=== PATIENT | male | born 1980 | race American Indian/Alaskan Native ===

== ENCOUNTER 2022-01-09 13:33 | Emergency (ER) | payer SELFPAY ==
--- NOTE | 2022-01-09 14:01 | Event Note ---
ED Screening Note ED Screening Note: 41-year-old male presents to the ED complaining of chest pain 1 day. He denies any shortness of breath at present time patient has a history of hypertension patient states pain is a 3 out of 10. No acute distress noted .No ill appearance noted. This initial assessment/diagnostic orders/clinical plan/treatment(s) is/are subject to change based on patients health status, clinical progression and re- assessment by fellow clinical providers in the ED. Further treatment and workup at subsequent clinical providers discretion. Patient/guardian urged not to elope from the ED as their condition may be serious if not clinically assessed and managed. Initial orders include:
--- NOTE | 2022-01-09 14:26 | XRay Report ---
CHEST 2 VIEWS INDICATION / CLINICAL INFORMATION: Chest Pain. COMPARISON: None available. FINDINGS: SUPPORT DEVICES: None. HEART / MEDIASTINUM: No significant abnormality. LUNGS / PLEURA: No significant pulmonary or pleural abnormality. No pneumothorax. ADDITIONAL FINDINGS: No significant additional findings. IMPRESSION: 1. No acute findings. Signer Name: Chandu Wade MD Signed: 01/09/2022 2:22 PM Workstation Name: [id number]
[2022-01-09 15:52] LABS: Hematocrit 40.8 % (35.5-45.6); Hemoglobin 13.4 gm/dl (11.8-15.2); Mean Corpuscular HGB Conc 33 % (32-34); Mean Corpuscular Volume 88 fl (84-94); Platelet Count 238 K/mm3 (140-440); Red Blood Count 4.64 M/mm3 (3.65-5.03); Red Cell Distribution Width 14.5 % (13.2-15.2)
[2022-01-09 16:34] LABS: INR 0.85 (0.87-1.13)
[2022-01-09 16:35] LABS: Partial Thromboplastin Time 28.6 Sec. (24.2-36.6)
[2022-01-09 17:25] LABS: Alanine Aminotransferase 28 units/L (7-56); BUN/Creatinine Ratio 8; Blood Urea Nitrogen 10 mg/dL (9-20); Calcium 9.3 mg/dL (8.4-10.2); Hemolysis Index 9
--- NOTE | 2022-01-09 19:02 | Electrocardiograph Report ---
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
--- NOTE | 2022-01-10 08:14 | Emergency Department Report ---
ED Chest Pain HPI - General Chief Complaint: Chest Pain Stated Complaint: UNABLE TO TAKE BREATHS Time Seen by Provider: 01/10/22 06:58 Source: patient Mode of arrival: Ambulatory Limitations: No Limitations - History of Present Illness Initial Comments: 41-year-old male with a history of hypertension currently on lisinopril who now came to the ER with chest pain radiating from back to the front of the chest that started on Saturday 4 days ago progressively getting worse. Taking a deep breath worsening pain. Patient is rating pain as 5-6 over 10 in severity. Patient initially thought this was acid reflux and took some jenna darrin with minimal relief. Patient denies any fever or chills. Patient told his bedside nurse that he does some illicit drugs ecstasy. Patient is a current smoker of cigarettes. He however denies any other modifying or associated factors. Severity scale (0 -10): 3 - Related Data Home Medications Medication Instructions Recorded Confirmed Last Taken Lisinopril [Zestril] 5 mg PO QDAY 01/10/22 01/10/22 Unknown Allergies Allergy/AdvReac Type Severity Reaction Status Date / Time No Known Allergies Allergy Verified 01/10/22 08:10 Heart Score - HEART Score History: Slightly suspicious EKG: Normal Age: < 45 Risk factors: 1-2 risk factors Troponin: < normal limit HEART Score: 1 - EKG Read Time Time EKG Completed: 13:50 EKG Read Time: 07:20 - Critical Actions Critical Actions: 0-3 pts:0.9-1.7%risk of adverse cardiac event.Candidate for discharge ED Review of Systems ROS: Stated complaint: UNABLE TO TAKE BREATHS Other details as noted in HPI Comment: All other systems reviewed and negative Respiratory: denies: shortness of breath Cardiovascular: chest pain. denies: palpitations, syncope Endocrine: denies: excessive sweating ED Past Medical Hx - Social History Smoking Status: Never Smoker Substance Use Type: None - Medications Home Medications: Home Medications Medication Instructions Recorded Confirmed Last Taken Type Lisinopril [Zestril] 5 mg PO QDAY 01/10/22 01/10/22 Unknown History ED Physical Exam - General Limitations: No Limitations General appearance: alert, in no apparent distress - Head Head exam: Present: normal inspection - Eye Eye exam: Present: normal appearance Pupils: Present: normal accommodation - ENT ENT exam: Present: normal exam, normal orophraynx, mucous membranes moist - Neck Neck exam: Present: normal inspection, full ROM. Absent: tenderness, meningismus, lymphadenopathy - Respiratory Respiratory exam: Present: normal lung sounds bilaterally. Absent: respiratory distress, accessory muscle use - Cardiovascular Cardiovascular Exam: Present: regular rate, normal rhythm, normal heart sounds - GI/Abdominal GI/Abdominal exam: Present: soft, normal bowel sounds. Absent: distended, tenderness - Extremities Exam Extremities exam: Present: normal inspection, full ROM, normal capillary refill. Absent: tenderness, pedal edema, joint swelling - Back Exam Back exam: Present: normal inspection. Absent: tenderness - Neurological Exam Neurological exam: Present: alert, oriented X3 - Psychiatric Psychiatric exam: Present: normal affect, normal mood - Skin Skin exam: Present: warm, intact ED Course Vital Signs 01/09/22 01/10/22 01/10/22 13:42 09:02 09:09 Temperature 98.9 F 98 F Pulse Rate 74 73 Respiratory 14 18 Rate Blood Pressure Blood Pressure 176/104 185/123 [Right] O2 Sat by Pulse 97 99 100 Oximetry 01/10/22 01/10/22 01/10/22 09:15 09:31 09:45 Temperature Pulse Rate Respiratory Rate Blood Pressure 185/123 185/123 194/122 Blood Pressure [Right] O2 Sat by Pulse 99 100 100 Oximetry 01/10/22 01/10/22 01/10/22 09:47 10:01 10:15 Temperature Pulse Rate Respiratory 18 Rate Blood Pressure 157/125 177/122 Blood Pressure 157/125 [Right] O2 Sat by Pulse 100 100 98 Oximetry 01/10/22 01/10/22 01/10/22 10:26 10:31 10:45 Temperature Pulse Rate 74 67 66 Respiratory 17 15 Rate Blood Pressure 177/122 177/122 165/106 Blood Pressure [Right] O2 Sat by Pulse 100 100 Oximetry 01/10/22 11:01 Temperature Pulse Rate 70 Respiratory 18 Rate Blood Pressure 157/102 Blood Pressure [Right] O2 Sat by Pulse 98 Oximetry LEONEL score - Leonel Score Age > 65: (0) No Aspirin use within the Past 7 Days: (0) No 3 or more CAD Risk Factors: (0) No 2 or more Angina events in past 24 hrs: (0) No Known CAD with more than 50% Stenosis: (0) No Elevated Cardiac Markers: (0) No ST Deviation Greater than 0.5mm: (0) No LEONEL Score: 0 ED Medical Decision Making - Lab Data Result diagrams: 01/09/22 14:58 01/09/22 14:58 - Medical Decision Making Here with chest pain/pressure--differential could be but not limited to myocardial infarction, pulmonary embolism, costochondritis, anxiety, gastritis, GERD, pancreatitis, and or pyelonephritis--in order to rule out the above-- so will go ahead and order routine cardiopulmonary work-up that include troponin, EKG, chest x-ray, BNP, CKMB, and CBC, CMP and urinalysis for any correctable infectious process or electrolyte abnormality as a cause. Given aspirin chewable x 1 and noted with unremarble labs including serial troponin x 3 and with other labs except UDS with amphetamine -- which could be contributing to the intermittent chest pain-- I discussed this with the patient and he voice understanding to quit illicit drug use. Critical care attestation.: If time is entered above; I have spent that time in minutes in the direct care of this critically ill patient, excluding procedure time. ED Disposition Clinical Impression: Amphetamine abuse Chest pain Qualifiers: Chest pain type: unspecified Qualified Code(s): R07.9 - Chest pain, unspecified Disposition: 01 HOME / SELF CARE / HOMELESS Is pt being admited?: No Does the pt Need Aspirin: No Condition: Stable Instructions: Nonspecific Chest Pain, Adult, Amphetamines Use Disorder, Methamphetamines Use Disorder Additional Instructions: Abstain from using illicit drugs especially the amphetamines as this could be contributing to your chest pain Increase your daily fluid to help your hydration Call and schedule follow-up with your primary doctor in the next 3 to 5 days for progress Please do not hesitate to call or return to emergency if your symptoms worsen Referrals: SOFIYA OH MD [Primary Care Provider] - 3-5 Days Time of Disposition: 12:07
[2022-01-10 09:31] LABS: Benzodiazepines Screen,Urine Negative; Cannabinoid Screen,Urine Negative; Cocaine Screen,Urine Negative; Methadone Screen,Urine Negative; Opiate Screen,Urine Negative
[2022-01-10 10:23] LABS: Amphetamine Screen,Urine Positive
[2022-01-10 11:06] VITALS: BP 157/102
--- NOTE | 2022-01-12 14:05 | Electrocardiograph Report ---
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
== END 2022-01-10 12:33 | disposition home or self-care (01) ==
LOC: ED 13:33
DX: R07.9 Chest pain, unspecified (principal); F15.10 Other stimulant abuse, uncomplicated; F17.290 Nicotine dependence, other tobacco product, uncomplicated
CPT/HCPCS: 36415; 71046; 80048; 80053; 80307; 83690; 84484; 85027; 85610; 85730; 93005; 96374; 99284; J3490